=== PATIENT | male | born 1985 | race Caucasian/White ===

== ENCOUNTER 2019-08-08 19:13 | Emergency (ER) | payer MEDICAID ==
[~2019-08-08] VITALS: Ht 172.7 cm; Wt 90.9 kg
[2019-08-08 20:06] VITALS: Ht 172.7 cm; Wt 90.9 kg
[2019-08-08 20:25] LABS: microscopic required? NO
[2019-08-08 20:30] LABS: urine erythrocyte NEGATIVE (NEGATIVE)
[2019-08-08 22:18] VITALS: BP 125/71
== END 2019-08-08 22:18 | disposition home or self-care (01) ==
LOC: ED 19:13
PROVIDERS: Specialist
DX: R39.15 Urgency of urination (principal); G89.29 Other chronic pain; M54.9 Dorsalgia, unspecified
CPT/HCPCS: 87491; 87591